=== PATIENT | male | born 2000 | race Caucasian/White ===

== ENCOUNTER 2020-09-04 08:20 | Outpatient (CLI) | payer BC ==
[2020-09-04] MEDS ORDERED: Iopamidol 370 76% 100 ML VIAL ONE (14:44)
== END 2020-09-04 08:21 | disposition home or self-care (01) ==
LOC: CT 08:20
PROVIDERS: ATTEND Internal Medicine
DX: K92.1 Melena (principal)
CPT/HCPCS: 74177; Q9967

== ENCOUNTER 2020-11-26 09:17 | Outpatient (CLI) | payer BC ==
[2020-11-26 18:23] LABS: SARS-CoV-2 PCR by NAA Not Detected (NotDetected)
== END 2020-11-26 09:18 | disposition home or self-care (01) ==
LOC: LABBT 09:17
PROVIDERS: ATTEND Surgery
DX: Z01.812 Encounter for preprocedural laboratory examination (principal); K60.3 Anal fistula; Z20.822 Contact with and (suspected) exposure to COVID-19
CPT/HCPCS: U0003; U0005

== ENCOUNTER 2020-12-01 09:54 | Day surgery (SDC) | payer BC ==
[2020-12-01] MEDS ORDERED: Lidocaine 2% Jelly 5 ML TUBE ONE (11:37)
[2020-12-01] MEDS ORDERED: Lidocaine 1% w/Epinephrine 1:100K 20 ML VIAL ONE (11:37)
[2020-12-01] MEDS ORDERED: Bupivacaine 0.25% HCL 30 ML VIAL ONE (11:37)
[2020-12-01] MEDS ORDERED: Fentanyl 100 MCG/2 ML VIAL ONE (11:41)
[2020-12-01] MEDS ORDERED: HYDROmorphone 0.5 MG/0.5 ML SYRINGE ONE (11:41)
[2020-12-01] MEDS ORDERED: Midazolam HCl 2 mg/2 ml Vial ONE (11:41)
[2020-12-01] MEDS ORDERED: Ondansetron PF 4 MG/2 ML Vial ONE (11:50)
[2020-12-01] MEDS ORDERED: Dexamethasone 20 MG/5 ML VIAL ONE (11:50)
[2020-12-01] MEDS ORDERED: PROPOFOL 200 MG/20 ML VIAL ONE (11:50)
[2020-12-01] MEDS ORDERED: Lidocaine 1% PF 5 ML VIAL ONE (11:50)
== END 2020-12-01 14:39 | disposition home or self-care (01) ==
LOC: SDC 09:54
PROVIDERS: ATTEND Surgery
PROC: 0H88XZZ Division of Buttock Skin, External Approach (ICD-10-PCS; principal; 2020-12-01)
DX: K60.3 Anal fistula (principal); J45.909 Unspecified asthma, uncomplicated; Z79.899 Other long term (current) drug therapy; Z91.012 Allergy to eggs
CPT/HCPCS: J0690; J1100; J1170; J2250; J2405; J2704; J3010; S0020

== ENCOUNTER 2023-06-20 05:22 | Emergency (ER) | payer BC ==
[2023-06-20] MEDS ORDERED: Ondansetron PF 4 MG/2 ML Vial ONE (05:45)
[2023-06-20 06:04] LABS: #Eosinphils 0.2 thou/uL (0.0-0.7); #Monocytes 0.6 thou/uL (0.11-0.59); #Neutrophils 7.4 thou/uL (1.40-6.50); %Basophils 0.3 % (0.0-1.0); %Eosinophils 2.7 % (0.0-10.0); %Lymphocytes 5.9 % (21.0-51.0); %Monocytes 6.7 % (0.0-10.0); %Neutrophils 84.1 % (42.0-75.0); Hematocrit 47.2 % (42.0-52.0); Hemoglobin 16.2 g/dL (14.0-18.0); Mean Corpuscular HGB CONC 34.3 g/dL (32.0-36.0); Mean Corpuscular Volume 84.4 fl (78.0-98.0); Mean Platelet Volume 11.3 fL (7.4-10.4); Platelet Count 186 10x3/uL (130-400); RBC Distribution Width 12.3 % (11.5-14.5); Red Blood Cell (RBC) Count 5.59 mill/uL (4.70-6.10); White Blood Cell (WBC) Count 8.8 10x3/uL (4.8-10.8)
[2023-06-20] MEDS ORDERED: Morphine 4 MG/ML VIAL ONE (06:17)
[2023-06-20 06:27] LABS: ALT (SGPT) 34 U/L (8-55); AST (SGOT) 26 U/L (5-34); Alkaline Phosphatase 64 U/L (40-110); Anion Gap 15 mmol/L (10-20); BUN (Urea Nitrogen) 17 mg/dL (8.9-20.6); Bilirubin, Total 1.7 mg/dL (0.2-1.2); Calc. Creatinine Clearance 0 mL/min (70-130); Calcium 9.8 mg/dL (7.8-10.44); Carbon Dioxide 23 mmol/L (22-29); Chloride 104 mmol/L (98-107); Estimated GFR 77; Glucose 122 mg/dL (70-105); Lipase 15 U/L (8-78); Sodium 138 mmol/L (136-145)
[2023-06-20] MEDS ORDERED: Iopamidol 370 76% 100 ML VIAL ONE (09:15)
== END 2023-06-20 08:37 | disposition home or self-care (01) ==
LOC: ERS 05:22
DX: R19.7 Diarrhea, unspecified (principal); R11.2 Nausea with vomiting, unspecified
CPT/HCPCS: 74177; 80053; 83690; 85025; 96361; 96374; 96375; J2270; J2405; Q9967

== ENCOUNTER 2024-07-17 09:52 | Outpatient (CLI) | payer OTHER | END 2024-07-17 09:53 | disposition home or self-care (01) | LOC: RAD 09:52 | PROVIDERS: ATTEND Otolaryngology | DX: R13.10 Dysphagia, unspecified (principal); R63.39 Other feeding difficulties | CPT/HCPCS: 74230 ==